=== PATIENT | female | born 1975 ===

== ENCOUNTER 2021-09-11 05:46 | Day surgery (SDC) | payer OTHER ==
[~2021-09-11] VITALS: Ht 160 cm; Wt 52.6 kg
[2021-09-11] MEDS ORDERED: NAPR500T14 PO (13:29)
[2021-09-11] MEDS ORDERED: MORGIDOX100 MG PO (13:29)
== END 2021-09-11 21:50 | disposition home or self-care (01) ==
LOC: CIR.AMB 05:46
PROVIDERS: ATTEND Obstetrics & Gynecology
DX: D25.0 Submucous leiomyoma of uterus (principal); N72 Inflammatory disease of cervix uteri; D39.0 Neoplasm of uncertain behavior of uterus; Z20.822 Contact with and (suspected) exposure to COVID-19